=== PATIENT | male | born 1945 | race Caucasian/White ===

== ENCOUNTER 2016-11-15 02:51 | Inpatient (IN) | payer OTHER ==
[~2016-11-15] VITALS: Ht 175.3 cm; Wt 108.9 kg
[2016-11-15 04:20] LABS: CALCIUM 8.4 mg/dL (8.5-10.1); CARBON DIOXIDE 20.9 mmol/L (21-32); CREATININE SERUM 1.9 mg/dL (0.7-1.3); POTASSIUM SERUM 4.2 mmol/L (3.5-5.1)
[2016-11-15] MEDS ORDERED: ALPRAZOLAM1 MG PO (04:23)
[2016-11-15] MEDS ORDERED: CEFPODOXIME PR200 MG PO (04:24)
[2016-11-15] MEDS ORDERED: LIPITOR80 MG PO (04:24)
[2016-11-15] MEDS ORDERED: BACLOFEN20 MG PO (04:24)
[2016-11-15] MEDS ORDERED: ASPIRIN325 MG PO (04:24)
[2016-11-15 04:25] LABS: ALBUMIN 3.3 g/dL (3.4-5.0); BILIRUBIN TOTAL 0.2 mg/dL (0.20-1.00); TOTAL PROTEIN, SERUM 7.3 g/dL (6.4-8.2)
[2016-11-15] MEDS ORDERED: MASON NATURAL1000 IU PO (04:25)
[2016-11-15] MEDS ORDERED: CATAPRES0.1 MG PO (04:25)
[2016-11-15] MEDS ORDERED: STOOL SOFTENER240 M2 PO (04:26)
[2016-11-15] MEDS ORDERED: FISH OIL CONC1000 M1 PO (04:26)
[2016-11-15] MEDS ORDERED: FLUTICASON0.05 MG/Ac (04:26)
[2016-11-15] MEDS ORDERED: HYDROCHLOROTHIA50 MG PO (04:27)
[2016-11-15] MEDS ORDERED: DILAUDID2 MG PO (04:27)
[2016-11-15] MEDS ORDERED: HEMORRHOIDAL RC (04:27)
[2016-11-15] MEDS ORDERED: GABAPENTIN600 M1 PO (04:27)
[2016-11-15] MEDS ORDERED: TOPROL XL25 MG PO (04:28)
[2016-11-15] MEDS ORDERED: VIMPAT200 M1 PO (04:28)
[2016-11-15] MEDS ORDERED: LEVOTHYROXIN0.025 M2 PO (04:28)
[2016-11-15] MEDS ORDERED: NARCAN4 MG NS (04:29)
[2016-11-15] MEDS ORDERED: PANTOPRAZOLE SO40 M1 PO (04:29)
[2016-11-15] MEDS ORDERED: OXYCODONE HYDRO15 MG PO (04:29)
[2016-11-15] MEDS ORDERED: [UNRECOGNIZED DRUG - OTHER] PO (04:30)
[2016-11-15] MEDS ORDERED: IMITREX50 MG PO (04:30)
[2016-11-15 04:32] LABS: BASOPHIL % 0.7 % (0-2); PLATELET COUNT 141 x10^3mcL (130-400)
[2016-11-15 04:34] LABS: RED CELL DISTRIBUTION WIDTH 14.8 % (11.5-14.5)
[2016-11-15 05:11] LABS: MAGNESIUM 2.3 mg/dL (1.8-2.4); PHOSPHOROUS 3.8 mg/dL (2.5-4.9)
[2016-11-15 05:17] LABS: T3 TOTAL 0.67 ng/mL
[2016-11-15 05:18] LABS: FREE T4 0.55 ng/dL (0.76-1.46)
[2016-11-15 05:24] LABS: FREE THYROXINE INDEX 1.3 ug/dL (1.4-4.5); T4(THYROXINE) 3.9 ug/dL (4.7-13.3)
[2016-11-15 08:50] VITALS: BP 161/75
[2016-11-15 11:35] LABS: microscopic required? YES; urine erythrocyte TRACE (NEGATIVE)
[2016-11-15 12:51] VITALS: BP 161/75
[2016-11-15 14:00] VITALS: BP 123/69
[2016-11-16 06:14] VITALS: BP 162/78
[2016-11-16 09:38] VITALS: BP 164/83
[2016-11-16 13:42] LABS: BASOPHIL % 0.1 % (0-2); PLATELET COUNT 133 x10^3mcL (130-400)
[2016-11-16 13:43] LABS: RED CELL DISTRIBUTION WIDTH 15.2 % (11.5-14.5)
[2016-11-16 13:52] LABS: CALCIUM 7.7 mg/dL (8.5-10.1); CARBON DIOXIDE 18.5 mmol/L (21-32); POTASSIUM SERUM 4.1 mmol/L (3.5-5.1)
[2016-11-16 13:54] LABS: ALBUMIN 2.6 g/dL (3.4-5.0)
[2016-11-16 16:29] VITALS: BP 142/86
[2016-11-16 19:20] VITALS: BP 132/87
[2016-11-17 06:24] VITALS: BP 147/57
[2016-11-17 06:47] LABS: CALCIUM 7.8 mg/dL (8.5-10.1); CARBON DIOXIDE 18.2 mmol/L (21-32); CREATININE SERUM 1.9 mg/dL (0.7-1.3); MAGNESIUM 1.9 mg/dL (1.8-2.4); PHOSPHOROUS 2.9 mg/dL (2.5-4.9); POTASSIUM SERUM 3.6 mmol/L (3.5-5.1)
[2016-11-17 07:10] LABS: BASOPHIL % 0.2 % (0-2); PLATELET COUNT 141 x10^3mcL (130-400); RED CELL DISTRIBUTION WIDTH 14.7 % (11.5-14.5)
[2016-11-17 09:48] VITALS: BP 109/53
[2016-11-17 14:04] VITALS: BP 130/57
[2016-11-17 17:38] VITALS: BP 125/56
[2016-11-17 20:00] VITALS: BP 186/73
[2016-11-17 21:24] VITALS: BP 162/56
[2016-11-18 05:50] VITALS: BP 152/93
[2016-11-18 05:57] VITALS: BP 138/65
[2016-11-18 05:58] LABS: BASOPHIL % 0.3 % (0-2); PLATELET COUNT 158 x10^3mcL (130-400)
[2016-11-18 06:16] LABS: CALCIUM 8.3 mg/dL (8.5-10.1); CARBON DIOXIDE 17.6 mmol/L (21-32); POTASSIUM SERUM 3.4 mmol/L (3.5-5.1)
[2016-11-18 06:27] LABS: RED CELL DISTRIBUTION WIDTH 14.6 % (11.5-14.5)
[2016-11-18 10:31] VITALS: BP 136/72
[2016-11-18 13:32] VITALS: BP 146/65
[2016-11-18 17:57] VITALS: BP 136/82
[2016-11-18 22:34] VITALS: BP 145/70
[2016-11-19 06:12] VITALS: BP 154/80
[2016-11-19 06:33] LABS: BASOPHIL % 0.4 % (0-2); PLATELET COUNT 196 x10^3mcL (130-400)
[2016-11-19 06:44] LABS: RED CELL DISTRIBUTION WIDTH 14.9 % (11.5-14.5)
[2016-11-19 06:46] LABS: CALCIUM 8.5 mg/dL (8.5-10.1); CARBON DIOXIDE 15.9 mmol/L (21-32); CREATININE SERUM 2.1 mg/dL (0.7-1.3); POTASSIUM SERUM 3.5 mmol/L (3.5-5.1)
[2016-11-19 09:22] VITALS: BP 178/91
[2016-11-19] MEDS ORDERED: ASPIR 8181 MG PO (16:43)
[2016-11-19] MEDS ORDERED: CATAPRES0.1 MG PO (16:44)
[2016-11-19] MEDS ORDERED: LEVOTHYROXIN0.125 M2 PO (16:46)
[2016-11-19] MEDS ORDERED: HYDRALAZINE HCL25 MG PO (16:46)
[2016-11-19] MEDS ORDERED: METOPROLOL TART25 M1 PO (16:47)
[2016-11-19] MEDS ORDERED: TRAZODONE100 MG PO (16:48)
[2016-11-19] MEDS ORDERED: KEPPRA500 MG PO (16:48)
[2016-11-19] MEDS ORDERED: DILANTIN100 MG PO (16:49)
[2016-11-19] MEDS ORDERED: LAC PO (16:51)
[2016-11-19] MEDS ORDERED: AMERINET CHOICE1 PD2 IV (16:51)
[2016-11-19] MEDS ORDERED: HEP5I SC (16:52)
[2016-11-19] MEDS ORDERED: LIPITOR80 MG PO (16:52)
[2016-11-19] MEDS ORDERED: TOR10 PO (16:53)
[2016-11-19] MEDS ORDERED: HIBICLENS118 ML TOP (16:54)
[2016-11-19] MEDS ORDERED: BACO TOP (16:54)
[2016-11-19] MEDS ORDERED: QUETIAPINE FUMA25 M1 PO (16:54)
[2016-11-19 17:40] VITALS: BP 155/77
[2016-11-19 18:29] VITALS: BP 155/77
== END 2016-11-19 18:53 | DRG 492 ==
LOC: ED 02:51 → DU 04:33 → MU 11-18 16:01
PROVIDERS: Emergency Medicine; Family Medicine; Podiatrist Foot & Ankle Surgery; ADMIT Family Medicine
PROC: 0QSG04Z Reposition Right Tibia with Internal Fixation Device, Open Approach (ICD-10-PCS; 2016-11-15)
PROC: 0QSG04Z Reposition Right Tibia with Internal Fixation Device, Open Approach (ICD-10-PCS; 2016-11-15)
PROC: 0QSJ04Z Reposition Right Fibula with Internal Fixation Device, Open Approach (ICD-10-PCS; principal; 2016-11-15 14:30)
DX: S82.851A Displaced trimalleolar fracture of right lower leg, initial encounter for closed fracture (principal); G93.41 Metabolic encephalopathy; E43 Unspecified severe protein-calorie malnutrition; N17.0 Acute kidney failure with tubular necrosis; N39.0 Urinary tract infection, site not specified; E87.0 Hyperosmolality and hypernatremia; B96.20 Unspecified Escherichia coli [E. coli] as the cause of diseases classified elsewhere; R73.03 Prediabetes; G62.9 Polyneuropathy, unspecified; I10 Essential (primary) hypertension; F43.10 Post-traumatic stress disorder, unspecified; E03.9 Hypothyroidism, unspecified; E78.5 Hyperlipidemia, unspecified; D64.9 Anemia, unspecified; F41.9 Anxiety disorder, unspecified; Z16.24 Resistance to multiple antibiotics; Z22.322 Carrier or suspected carrier of Methicillin resistant Staphylococcus aureus; Z85.51 Personal history of malignant neoplasm of bladder; Z86.73 Personal history of transient ischemic attack (TIA), and cerebral infarction without residual deficits; Z68.35 Body mass index [BMI] 35.0-35.9, adult; W18.39XA Other fall on same level, initial encounter; Y93.01 Activity, walking, marching and hiking; Y92.018 Other place in single-family (private) house as the place of occurrence of the external cause
CPT/HCPCS: 76001; 82962; 83880; 84439; 97110-GP; 97530-GP; C1713; J0696; J1170; J1644; J1885; J2060; J2405; J2543; J2704; J3010; J3490; J7030; Q0092